=== PATIENT | female | born 1955 | race Two or more races ===

== ENCOUNTER 2016-07-07 22:50 | Emergency (ER) | payer OTHER ==
[~2016-07-07] VITALS: Ht 167.6 cm; Wt 136.1 kg
[~2016-07-07 22:50] MED LIST: ELIQUIS5 MG PO; FLUTICASONE PRO16 G1 NASAL; FUROSEMIDE40 MG ORAL; KLOR-CON 1010 MEQ ORAL; LORATADINE10 M2 PO; METOPROLOL SUCC25 MG ORAL; POTASSIUM CHLO10 ME3 ORAL; PRAVASTATIN SOD20 M1 ORAL; SERTRALINE HCL100 MG PO; TRAZODONE HCL50 MG ORAL; VENTOLIN HFA18 GM INH
[2016-07-07 23:19] VITALS: BP 124/57
--- NOTE | 2016-07-07 23:24 | Emergency Room Report ---
History of Present Illness General Chief Complaint: Vomiting Source: Patient Present Illness HPI This is a 60-year-old female with a history of wide-complex tachycardia. She is pending authorization for ablation therapy. She presents with cough and congestion with shortness of breath for the last 5 days. Granddaughter said. No fever or chills and no nausea no vomiting. Worse with inspiration. Now with chest tightness. One episode of tachycardia to 3 days ago. Allergies: Coded Allergies: No Known Allergies (Unverified , 03/18/16) Patient History Past Medical History: see triage record, old chart reviewed Past Surgical History: other Pertinent Family History: none Social History: Denies: smoking Now: No Immunizations: other Reviewed Nursing Documentation: PMH: Agreed, PSxH: Agreed Nursing Documentation-PMH Hx Cardiac Problems: Yes Hx Hypertension: Yes Hx COPD: Yes Hx Gastrointestinal Problems: No Hx Neurological Problems: No Review of Systems Eye: Denies: blurred vision, eye pain ENT: Denies: ear pain, nose congestion, throat swelling Respiratory: Reports: cough, shortness of breath Cardiovascular: Denies: chest pain, palpitations Gastrointestinal: Denies: abdominal pain, diarrhea, nausea, vomiting Musculoskeletal: Denies: back pain, joint pain Skin: Denies: rash Neurological: Denies: headache, numbness Endocrine: Denies: increased thirst, increased urine Hematologic/Lymphatic: Denies: easy bruising All Other Systems: negative except mentioned in HPI Physical Exam Vital Signs Date Time Temp Pulse Resp B/P Pulse Ox O2 Delivery O2 Flow Rate FiO2 07/07/16 22:57 98.1 76 19 108/76 95 Room Air vitals normal Sp02 EP Interpretation: reviewed, normal General Appearance: well appearing, no apparent distress, alert, obese Head: normocephalic, atraumatic Eyes: bilateral eye EOMI, bilateral eye PERRL ENT: hearing grossly normal, normal pharynx Neck: full range of motion, supple, no meningismus Respiratory: chest non-tender, lungs clear, normal breath sounds, other - Coughing with inspiration Cardiovascular #1: regular rate, rhythm, no murmur Gastrointestinal: normal bowel sounds, non tender, no mass, no organomegaly, no bruit, non-distended Musculoskeletal: back normal, gait/station normal, normal range of motion Neurologic: alert, oriented x3 Psychiatric: mood/affect normal Skin: warm/dry Medical Decision Making Diagnostic Impression: Primary Impression: Viral upper respiratory tract infection with cough ER Course Patient presents with a cough secondary to a viral illness. No evidence of ACS , PE, dissection, arrhythmia, CHF to name a few Lab Results Impression labs unremarkable EKG Diagnostic Results Rate: normal Rhythm: NSR ST Segments: no acute changes Rhythm Strip Diag. Results EP Interpretation: yes Rate: 72 Rhythm: NSR, no PVC's, no ectopy Chest X-Ray Diagnostic Results EP Interpretation: Yes Findings: no consolidation, no effusion, no pneumothorax, no acute cardiopulmonary disease Number of Views: 1 Last Vital Signs Date Time Temp Pulse Resp B/P Pulse Ox O2 Delivery O2 Flow Rate FiO2 07/07/16 23:19 98.1 81 19 124/57 97 Room Air Status: improved Disposition: HOME, SELF-CARE Condition: Stable Scripts Prednisone* (PREDNISONE*) 20 Mg Tablet 60 MG ORAL DAILY, #15 TAB Prov: DORA MAJOR M.D. 07/08/16 Promethazine HCl/Codeine (Prometh-Codein 6.25-10 mg/5 ml) 5 Ml Syrup 10 ML PO QID, #240 ML Prov: DORA MAJOR M.D. 07/08/16 Referrals: [facility],REFERRING (PCP) Additional Instructions: Followup with your DrBrenna in 2-3 days. Return if symptom worsen. DORA MAJOR M.D. Jul 07, 2016 23:24
[2016-07-07] MEDS ORDERED: Ipratropium 0.02% Inh Soln 2.5ml UD HHN ONE (23:30)
[2016-07-07] MEDS ORDERED: Solu-MEDROL 125mg Inj IVP ONE (23:30)
[2016-07-07 23:49] LABS: EOSINOPHILS % (AUTO) 5.1 % (0.0-3.0); LYMPHOCYTES % (AUTO) 21.4 % (20.0-45.0); MEAN CORPUSCULAR HEMOGLOBIN 32.7 PG (27.0-31.0); MEAN CORPUSCULAR HGB CONC 35.4 G/DL (32.0-36.0); MEAN CORPUSCULAR VOLUME 92 FL (80-99); MEAN PLATELET VOLUME 7.4 FL (6.5-10.1); MONOCYTES % (AUTO) 8.3 % (1.0-10.0); NEUTROPHILS % (AUTO) 64.2 % (45.0-75.0); PLATELET COUNT 217 K/UL (150-450); WHITE BLOOD COUNT 9.3 K/UL (4.8-10.8)
[2016-07-08 00:05] LABS: ALANINE AMINOTRANSFERASE 19 U/L (3-33); ALBUMIN/GLOBULIN RATIO 1.1 (1.0-2.7); ANION GAP 14 (5-15); ASPARTATE AMINO TRANSFERASE 24 U/L (5-40); CALCIUM 9.4 mg/dL (8.6-10.2); CARBON DIOXIDE 27 mEQ/L (20-30); CHLORIDE 97 mEQ/L (98-107); CREATININE 0.8 mg/dL (0.5-0.9); GLOMERULAR FILTRATION RATE > 60 mL/min (>60); HEMOLYSIS 2; POTASSIUM 4.2 mEQ/L (3.4-4.9); SODIUM 138 mEQ/L (135-145); TOTAL PROTEIN 7.8 g/dL (6.6-8.7)
[2016-07-08 00:10] LABS: TROPONIN I < 0.30 ng/mL (<=0.30)
[2016-07-08 00:27] VITALS: BP 105/60
[2016-07-08] MEDS ORDERED: PREDNISONE20 MG ORAL (00:31)
[2016-07-08] MEDS ORDERED: PROMETH-CODEIN 65 ML PO (00:31)
[2016-07-08 00:45] VITALS: BP 105/60
--- NOTE | 2016-07-08 13:44 | Diagnostic Imaging Report ---
Indication: SOB Technique: One view of the chest Comparison: 03/18/2016 Findings: Body habitus limits evaluation lungs and pleural spaces are clear. The heart is normal in size. No significant change Impression: No acute process
--- NOTE | 2016-07-08 14:16 | Cardiology Report ---
APPROVED REPORT EKG Measurement Heart [id number] FL 132P [id number] Sinus rhythm with frequent premature ventricular complexes in a pattern of bigeminy Possible Lateral infarct, age undetermined Abnormal ECG
== END 2016-07-08 00:50 | disposition home or self-care (01) ==
LOC: EMR 23:22
DX: J06.9 Acute upper respiratory infection, unspecified (principal); I10 Essential (primary) hypertension; J44.9 Chronic obstructive pulmonary disease, unspecified
CPT/HCPCS: 36415; 71010; 80053; 84484; 85025; 93005; 94640; 94664; 96361; 96374; 99284; J2930; J7040

== ENCOUNTER 2016-08-01 04:25 | Inpatient (IN) | payer OTHER ==
[2016-08-01] VITALS (9 sets, daily range): BP systolic 87–106; BP diastolic 51–85
[~2016-08-01] VITALS: Ht 167.6 cm; Wt 144.7 kg
[~2016-08-01 04:25] MED LIST changes: +Diltiazem 50mg/10ml Inj ONE; +PREDNISONE20 MG ORAL; +PROMETH-CODEIN 65 ML PO
[2016-08-01] MEDS ORDERED: Diltiazem 25mg/5ml IV ONE (04:30)
--- NOTE | 2016-08-01 04:45 | Emergency Room Report ---
History of Present Illness General Chief Complaint: Chest Pain Source: Patient, Medical Record Present Illness HPI This is a 60-year-old female with a history hypertension, asthma, afib and arrhythmia. She had a wide-complex arrhythmia that was unsuccessful with ablation at [facility]. This is the third time she present with the same her symptoms. I saw her once before. She was getting up to use the restroom and felt palpitation and lightheaded. Unable to sleep. More severe this time with increasing pain and dizziness. EMS gave her 6 mg of adenosine, then 12 mg, then another 12 mg. He was unsuccessful. Heart rate was in the 190-200. She also received aspirin and nitroglycerin. Rated the pain as 7/10. No fever or chills. No diaphoresis. Onset for 2 hours now. She is on Eliquis for her afib. Allergies: Coded Allergies: No Known Allergies (Unverified , 03/18/16) Patient History Past Medical History: see triage record, old chart reviewed, HTN, AFib, arrhyth Past Surgical History: other Pertinent Family History: none Social History: Denies: smoking Now: No Immunizations: other Reviewed Nursing Documentation: PMH: Agreed, PSxH: Agreed Nursing Documentation-PMH Hx Cardiac Problems: Yes Hx Hypertension: Yes Hx COPD: Yes Hx Gastrointestinal Problems: No Hx Neurological Problems: No Review of Systems Eye: Denies: blurred vision, eye pain ENT: Denies: ear pain, nose congestion, throat swelling Respiratory: Denies: cough, shortness of breath Cardiovascular: Reports: chest pain, palpitations Gastrointestinal: Denies: abdominal pain, diarrhea, nausea, vomiting Musculoskeletal: Denies: back pain, joint pain Skin: Denies: rash Neurological: Reports: dizziness, Denies: headache, numbness Endocrine: Denies: increased thirst, increased urine Hematologic/Lymphatic: Denies: easy bruising All Other Systems: negative except mentioned in HPI Physical Exam Vital Signs Date Time Temp Pulse Resp B/P Pulse Ox O2 Delivery O2 Flow Rate FiO2 08/01/16 04:22 97.2 195 42 106/82 98 Room Air vitals with tachycardia Sp02 EP Interpretation: reviewed, normal General Appearance: well appearing, alert, mild distress, obese Head: normocephalic, atraumatic Eyes: bilateral eye EOMI, bilateral eye PERRL ENT: hearing grossly normal, normal pharynx Neck: full range of motion, supple, no meningismus Respiratory: chest non-tender, lungs clear, normal breath sounds Cardiovascular #1: regular rate, rhythm, no murmur, tachycardia Gastrointestinal: normal bowel sounds, non tender, no mass, no organomegaly, no bruit, non-distended Musculoskeletal: back normal, normal range of motion Neurologic: alert, oriented x3 Psychiatric: mood/affect normal Skin: warm/dry Procedures Critical Care Time Critical Care Time Critical care is mandated in this patient who presented with ventricular tachycardia. Patient require my urgent intervention to attenuate the risks of metabolic collapse which may lead to cardiovascular collapse and . Critical care time is 35 minutes excluding any reportable procedure. Critical care time included evaluation, multiple reevaluation, looking at old charts, interpreting laboratory and diagnostic data, discussing case with patient and family and consultants, and charting. Medical Decision Making Diagnostic Impression: Primary Impression: Ventricular tachyarrhythmia Additional Impressions: Chest pain Qualified Codes: R07.9 - Chest pain, unspecified Morbid obesity with BMI of 60.0-69.9, adult ER Course Patient presents with a wide-complex ventricular tachycardia. This is probably a rapid A. fib. Rated controlled nicely after a small bolus of Cardizem. Blood pressure better. No evidence of infection. Troponin negative. We'll get for further workup. She may benefit from AICD. She is currently on anticoagulation with Eliquis. EKG Diagnostic Results Rate: tachycardiac Rhythm: other - wide complex VTach ST Segments: no acute changes Other Impression EKG #2: interpreted by me. NSR, rate 102. NSST changes. No ST elevation. Rhythm Strip Diag. Results EP Interpretation: yes Rate: 98 Rhythm: NSR, no PVC's, no ectopy Chest X-Ray Diagnostic Results EP Interpretation: Yes Findings: no consolidation, no effusion, no pneumothorax, no acute cardiopulmonary disease, other - CM Number of Views: 1 Last Vital Signs Date Time Temp Pulse Resp B/P Pulse Ox O2 Delivery O2 Flow Rate FiO2 08/01/16 04:33 198 102/82 08/01/16 04:22 97.2 42 98 Room Air Status: improved Disposition: ADMITTED INPATIENT Condition: Serious DORA MAJOR M.D. Aug 01, 2016 04:45
[2016-08-01 04:52] LABS: BASOPHILS % (AUTO) 0.5 % (0.0-2.0); EOSINOPHILS % (AUTO) 2.3 % (0.0-3.0); LYMPHOCYTES % (AUTO) 22.3 % (20.0-45.0); MEAN CORPUSCULAR HEMOGLOBIN 30.6 PG (27.0-31.0); MEAN CORPUSCULAR HGB CONC 33.1 G/DL (32.0-36.0); MEAN CORPUSCULAR VOLUME 92 FL (80-99); MEAN PLATELET VOLUME 7.2 FL (6.5-10.1); MONOCYTES % (AUTO) 4.8 % (1.0-10.0); NEUTROPHILS % (AUTO) 70.2 % (45.0-75.0); PLATELET COUNT 311 K/UL (150-450); RED BLOOD COUNT 5.36 M/UL (4.20-5.40); WHITE BLOOD COUNT 16.2 K/UL (4.8-10.8)
[2016-08-01 05:08] LABS: INR 1.1 (0.9-1.1); PROTHROMBIN TIME 10.9 SEC (9.30-11.50)
[2016-08-01 05:10] LABS: ALANINE AMINOTRANSFERASE 21 U/L (3-33); ALBUMIN/GLOBULIN RATIO 1.1 (1.0-2.7); ANION GAP 17 (5-15); ASPARTATE AMINO TRANSFERASE 20 U/L (5-40); CALCIUM 9.1 mg/dL (8.6-10.2); CARBON DIOXIDE 25 mEQ/L (20-30); CHLORIDE 99 mEQ/L (98-107); CREATININE 0.8 mg/dL (0.5-0.9); GLOMERULAR FILTRATION RATE > 60 mL/min (>60); HEMOLYSIS 15; POTASSIUM 3.9 mEQ/L (3.4-4.9); SODIUM 141 mEQ/L (135-145); TOTAL PROTEIN 7.2 g/dL (6.6-8.7)
[2016-08-01 05:15] LABS: TROPONIN I < 0.30 ng/mL (<=0.30)
[2016-08-01 05:25] LABS: CKMB < 1.5 ng/mL (< 3.8)
[2016-08-01 05:43] LABS: APPEARANCE,URINE CLEAR; KETONES,URINE NEGATIVE (NEGATIVE); LEUKOCYTE ESTERASE ,URINE NEGATIVE (NEGATIVE); NITRITE,URINE NEGATIVE (NEGATIVE); PH,URINE 5 (4.5-8.0); PROTEIN,URINE NEGATIVE (NEGATIVE); UROBILINOGEN,URINE NORMAL MG/DL (0.0-1.0)
[2016-08-01] MEDS ORDERED: ACETAMINOPHEN-1 EAC1 ORAL (05:54)
[2016-08-01] MEDS ORDERED: Nitroglycerin Subl 0.4mg tab (Bottle Of 25) SL PRN (07:30)
[2016-08-01] MEDS ORDERED: Ketorolac 30mg Inj IV PRN (07:30)
[2016-08-01] MEDS ORDERED: Metoprolol 5mg/5ml Inj IVP PRN (07:30)
[2016-08-01] MEDS ORDERED: Enalaprilat 2.5mg/2ml Inj IV PRN (07:30)
[2016-08-01] MEDS ORDERED: Diltiazem 25mg/5ml IV PRN (07:30)
[2016-08-01] MEDS ORDERED: Morphine Sulfate 2mg/ml Inj IVP PRN (07:30)
[2016-08-01] MEDS ORDERED: DuoNeb 0.5-3(2.5)mg/3ml neb HHN PRN (07:30)
[2016-08-01] MEDS ORDERED: Miralax 17gm pkt ORAL PRN (07:30)
[2016-08-01] MEDS ORDERED: Digoxin 0.5mg/2ml Inj IVP ONE (08:00)
[2016-08-01] MEDS ORDERED: Eliquis 2.5mg tablet ORAL SCH (09:00)
--- NOTE | 2016-08-01 10:13 | Cardiology Progress Note ---
Assessment/Plan Assessment/Plan 1. Wide complex tachycardia converted with the use of IV diltiazem. 2. Reported history of same with negative electrophysiology study forinduction of right ventricular outflow tract and ventricular tachycardia. 3. History of of atrial fibrillation noted on Zio patch 25% afib burden 4. Obesity. 5. Possible obstructive sleep apnea. 6. Hypertension bp on the low side nwo ivf bolus repeat cardiac enzyme ekg and echo needs to fuw by her ep they are waiting for authorization for eps per pt metoprolol bid prn cardizem 30 mg one time use for recurrence as out pt (need 5 tabs to have a t home to use only if persistent tachy ) keep on anticoagualtion [id number]. Objective Last 24 Hour Vital Signs Date Time Temp Pulse Resp B/P Pulse Ox O2 Delivery O2 Flow Rate FiO2 08/01/16 09:01 76 92/58 08/01/16 08:14 74 08/01/16 08:08 74 08/01/16 08:00 97.2 75 18 87/55 96 Room Air 08/01/16 06:30 97.0 76 18 105/65 99 Room Air 08/01/16 06:15 98.0 74 15 105/80 100 Room Air 08/01/16 06:15 74 15 105/80 100 Room Air 08/01/16 05:30 74 14 98/83 100 Room Air 08/01/16 04:50 88 18 101/85 100 Room Air 08/01/16 04:36 198 25 106/82 99 Room Air 08/01/16 04:36 198 25 Room Air 08/01/16 04:33 198 102/82 08/01/16 04:22 97.2 195 42 106/82 98 Room Air Intake and Output 07/31/16 08/01/16 19:00 07:00 Intake Total 500 ml Output Total 1300 ml Balance -800 ml IV Total 500 ml Output Urine Total 1300 ml Laboratory Tests Test 08/01/16 04:28 08/01/16 05:06 08/01/16 09:30 White Blood Count 16.2 K/UL (4.8-10.8) H Red Blood Count 5.36 M/UL (4.20-5.40) Hemoglobin 16.4 G/DL (12.0-16.0) H Hematocrit 49.5 % (37.0-47.0) H Mean Corpuscular Volume 92 FL (80-99) Mean Corpuscular Hemoglobin 30.6 PG (27.0-31.0) Mean Corpuscular Hemoglobin Concent 33.1 G/DL (32.0-36.0) Red Cell Distribution Width 12.0 % (11.6-14.8) Platelet Count 311 K/UL (150-450) Mean Platelet Volume 7.2 FL (6.5-10.1) Neutrophils (%) (Auto) 70.2 % (45.0-75.0) Lymphocytes (%) (Auto) 22.3 % (20.0-45.0) Monocytes (%) (Auto) 4.8 % (1.0-10.0) Eosinophils (%) (Auto) 2.3 % (0.0-3.0) Basophils (%) (Auto) 0.5 % (0.0-2.0) Prothrombin Time 10.9 SEC (9.30-11.50) Prothromb Time International Ratio 1.1 (0.9-1.1) Activated Partial Thromboplast Time 27 SEC (23-33) Sodium Level 141 mEQ/L (135-145) Potassium Level 3.9 mEQ/L (3.4-4.9) Chloride Level 99 mEQ/L (98-107) Carbon Dioxide Level 25 mEQ/L (20-30) Anion Gap 17 (5-15) H Blood Urea Nitrogen 13 mg/dL (7-23) Creatinine 0.8 mg/dL (0.5-0.9) Estimat Glomerular Filtration Rate > 60 mL/min (>60) Glucose Level 153 mg/dL (74-106) H Calcium Level 9.1 mg/dL (8.6-10.2) Total Bilirubin 0.2 mg/dL (0.0-1.2) Aspartate Amino Transf (AST/SGOT) 20 U/L (5-40) Alanine Aminotransferase (ALT/SGPT) 21 U/L (3-33) Alkaline Phosphatase 107 U/L (35-104) H Total Creatine Kinase 49 U/L (26-140) Creatine Kinase MB < 1.5 ng/mL (< 3.8) Creatine Kinase MB Relative Index 3.0 Troponin I < 0.30 ng/mL (<=0.30) Pending Pro-B-Type Natriuretic Peptide 795 pg/mL (0-125) H Total Protein 7.2 g/dL (6.6-8.7) Albumin 3.8 g/dL (3.5-5.2) Globulin 3.4 g/dL Albumin/Globulin Ratio 1.1 (1.0-2.7) Urine Color Pale yellow Urine Appearance Clear Urine pH 5 (4.5-8.0) Urine Specific [place] 1.010 (1.005-1.035) Urine Protein Negative (NEGATIVE) Urine Glucose (UA) Negative (NEGATIVE) Urine Ketones Negative (NEGATIVE) Urine Occult Blood Negative (NEGATIVE) Urine Nitrite Negative (NEGATIVE) Urine Bilirubin Negative (NEGATIVE) Urine Urobilinogen Normal MG/DL (0.0-1.0) Urine Leukocyte Esterase Negative (NEGATIVE) IRVIN HEARD Aug 01, 2016 10:13
[2016-08-01] MEDS: Eliquis 2.5mg tablet ORAL SCH ×2 (10:25→21:45)
[2016-08-01] MEDS: Metoprolol 50mg tab ORAL SCH ×2 (10:27→21:00)
[2016-08-01 10:36] LABS: TROPONIN I < 0.30 ng/mL (<=0.30)
--- NOTE | 2016-08-01 11:24 | History and Physical ---
History of Present Illness General Date patient seen: Aug 01, 2016 Reason for Hospitalization: Chest Pain Present Illness HPI 60-year-old female with a history hypertension, asthma, afib and arrhythmia. She had a wide-complex arrhythmia that was unsuccessful with ablation at [facility]. This is the third time she present with the same her symptoms. She was getting up and felt palpitation and lightheaded. EMS gave her 6 mg of adenosine, then 12 mg, then another 12 mg. It was unsuccessful. Heart rate was in the 190-200. She received digoxin, cardizem , lopressor in ER and converted to sinus. Allergies: Coded Allergies: No Known Allergies (Unverified , 03/18/16) Medication History Scheduled Furosemide* (Lasix*), 40 MG ORAL DAILY, (Reported) Metoprolol Succinate* (Metoprolol Succinate*), 25 MG ORAL DAILY, (Reported) Potassium Chloride (Klor-Con 10), 10 MEQ ORAL DAILY, (Reported) Sertraline Hcl* (Zoloft*), 100 MG PO DAILY, (Reported) Scheduled PRN Acetaminophen With Codeine (T#3) (Tylenol #3 Tab*), 1 TAB ORAL Q4H PRN for For Pain, (Reported) Miscellaneous Medications Apixaban (Eliquis), 5 MG PO, (Reported) Discontinued Medications Albuterol Sulfate (Ventolin Hfa), 2 PUFFS INH EVERY 6 HOURS, (Reported) Discontinued Reason: Therapy completed Fluticasone Propionate* (Fluticasone Propionate*), 1 SPRAY NASAL DAILY, ( Reported) Discontinued Reason: Therapy completed Loratadine (Loratadine), 10 MG PO, (Reported) Discontinued Reason: Therapy completed Potassium Chloride (Potassium Chloride), 10 MEQ ORAL DAILY, (Reported) Discontinued Reason: Therapy completed Pravastatin Sod* (Pravastatin Sod*), 40 MG ORAL BEDTIME, (Reported) Discontinued Reason: Therapy completed Prednisone* (Prednisone*), 60 MG ORAL DAILY Discontinued Reason: Therapy completed Promethazine HCl/Codeine (Prometh-Codein 6.25-10 mg/5 ml), 10 ML PO QID Discontinued Reason: Therapy completed Trazodone Hcl* (Desyrel*), 50 MG ORAL BEDTIME, (Reported) Discontinued Reason: Therapy completed Patient History Healthcare decision maker Resuscitation status Full Code Advanced Directive on File Past Medical/Surgical History Past Medical/Surgical History: (1) Ventricular tachyarrhythmia (2) Morbid obesity with BMI of 60.0-69.9, adult Review of Systems All Other Systems: negative except mentioned in HPI Physical Exam General Appearance: WD/WN, no apparent distress Lines, tubes and drains: peripheral, central line HEENT: normocephalic, atraumatic Neck: non-tender, supple Respiratory/Chest: chest wall non-tender Last 24 Hour Vital Signs Date Time Temp Pulse Resp B/P Pulse Ox O2 Delivery O2 Flow Rate FiO2 08/01/16 09:01 76 92/58 08/01/16 08:14 74 08/01/16 08:08 74 08/01/16 08:00 97.2 75 18 87/55 96 Room Air 08/01/16 06:30 97.0 76 18 105/65 99 Room Air 08/01/16 06:15 98.0 74 15 105/80 100 Room Air 08/01/16 06:15 74 15 105/80 100 Room Air 08/01/16 05:30 74 14 98/83 100 Room Air 08/01/16 04:50 88 18 101/85 100 Room Air 08/01/16 04:36 198 25 106/82 99 Room Air 08/01/16 04:36 198 25 Room Air 08/01/16 04:33 198 102/82 08/01/16 04:22 97.2 195 42 106/82 98 Room Air Intake and Output 07/31/16 08/01/16 19:00 07:00 Intake Total 500 ml Output Total 1300 ml Balance -800 ml IV Total 500 ml Output Urine Total 1300 ml Laboratory Tests Test 08/01/16 04:28 08/01/16 05:06 08/01/16 09:30 White Blood Count 16.2 K/UL (4.8-10.8) H Red Blood Count 5.36 M/UL (4.20-5.40) Hemoglobin 16.4 G/DL (12.0-16.0) H Hematocrit 49.5 % (37.0-47.0) H Mean Corpuscular Volume 92 FL (80-99) Mean Corpuscular Hemoglobin 30.6 PG (27.0-31.0) Mean Corpuscular Hemoglobin Concent 33.1 G/DL (32.0-36.0) Red Cell Distribution Width 12.0 % (11.6-14.8) Platelet Count 311 K/UL (150-450) Mean Platelet Volume 7.2 FL (6.5-10.1) Neutrophils (%) (Auto) 70.2 % (45.0-75.0) Lymphocytes (%) (Auto) 22.3 % (20.0-45.0) Monocytes (%) (Auto) 4.8 % (1.0-10.0) Eosinophils (%) (Auto) 2.3 % (0.0-3.0) Basophils (%) (Auto) 0.5 % (0.0-2.0) Prothrombin Time 10.9 SEC (9.30-11.50) Prothromb Time International Ratio 1.1 (0.9-1.1) Activated Partial Thromboplast Time 27 SEC (23-33) Sodium Level 141 mEQ/L (135-145) Potassium Level 3.9 mEQ/L (3.4-4.9) Chloride Level 99 mEQ/L (98-107) Carbon Dioxide Level 25 mEQ/L (20-30) Anion Gap 17 (5-15) H Blood Urea Nitrogen 13 mg/dL (7-23) Creatinine 0.8 mg/dL (0.5-0.9) Estimat Glomerular Filtration Rate > 60 mL/min (>60) Glucose Level 153 mg/dL (74-106) H Calcium Level 9.1 mg/dL (8.6-10.2) Total Bilirubin 0.2 mg/dL (0.0-1.2) Aspartate Amino Transf (AST/SGOT) 20 U/L (5-40) Alanine Aminotransferase (ALT/SGPT) 21 U/L (3-33) Alkaline Phosphatase 107 U/L (35-104) H Total Creatine Kinase 49 U/L (26-140) Creatine Kinase MB < 1.5 ng/mL (< 3.8) Creatine Kinase MB Relative Index 3.0 Troponin I < 0.30 ng/mL (<=0.30) < 0.30 ng/mL (<=0.30) Pro-B-Type Natriuretic Peptide 795 pg/mL (0-125) H Total Protein 7.2 g/dL (6.6-8.7) Albumin 3.8 g/dL (3.5-5.2) Globulin 3.4 g/dL Albumin/Globulin Ratio 1.1 (1.0-2.7) Urine Color Pale yellow Urine Appearance Clear Urine pH 5 (4.5-8.0) Urine Specific [place] 1.010 (1.005-1.035) Urine Protein Negative (NEGATIVE) Urine Glucose (UA) Negative (NEGATIVE) Urine Ketones Negative (NEGATIVE) Urine Occult Blood Negative (NEGATIVE) Urine Nitrite Negative (NEGATIVE) Urine Bilirubin Negative (NEGATIVE) Urine Urobilinogen Normal MG/DL (0.0-1.0) Urine Leukocyte Esterase Negative (NEGATIVE) Height (Feet): 5 Height (Inches): 6.00 Weight (Pounds): 319 Medications Current Medications Medications (Trade) Dose Ordered Sig/Gisella Route PRN Reason Start Time Stop Time Status Last Admin Dose Admin Acetaminophen (Tylenol) 650 mg Q4H PRN ORAL FEVER 08/01/16 07:30 08/31/16 07:29 Albuterol/ Ipratropium (DuoNeb 0.5-3(2.5)mg/3ml) 3 ml EVERY 4 HOURS PRN HHN Shortness of Breath 08/01/16 07:30 08/06/16 07:29 Apixaban (Eliquis) 5 mg BID ORAL 08/01/16 11:00 08/31/16 10:59 Diltiazem HCl (Cardizem) 10 mg EVERY HOUR PRN IV heart rate more than 120, 08/01/16 07:30 08/31/16 07:29 Enalaprilat (Vasotec) 2.5 mg EVERY 6 HOURS PRN IV sbp more than 160 08/01/16 07:30 08/31/16 07:29 Ketorolac Tromethamine (Toradol 30mg) 30 mg Q6HR PRN IV moderate pain ( 4-6) 08/01/16 07:30 08/06/16 07:29 Metoprolol Tartrate 50 mg 50 mg Q12HR ORAL 08/01/16 11:00 08/31/16 10:59 Morphine Sulfate (Morphine Sulfate) 2 mg EVERY 4 HOURS PRN IVP severe Pain (Pain Scale 7-10) 08/01/16 07:30 08/08/16 07:29 Nitroglycerin (Ntg) 0.4 mg Q5M PRN SL Prn Chest Pain 08/01/16 07:30 08/31/16 07:29 Ondansetron HCl (Zofran) 4 mg Q6H PRN IVP Nausea & Vomiting 08/01/16 07:30 08/31/16 07:29 Pantoprazole (Protonix) 40 mg DAILY ORAL 08/01/16 09:00 08/31/16 08:59 08/01/16 09:02 Polyethylene Glycol (Miralax) 17 gm DAILYPRN PRN ORAL Constipation 08/01/16 07:30 08/31/16 07:29 Sodium Chloride (Sodium Chloride 1000ml bag) 1,000 ml @ 75 mls/hr [id number] IV 08/01/16 11:00 08/31/16 10:59 08/01/16 10:49 Temazepam (Restoril) 15 mg HSPRN PRN ORAL Insomnia 08/01/16 07:30 08/08/16 07:29 Assessment/Plan Problem List: (1) Ventricular tachyarrhythmia ICD Codes: I47.2 - Ventricular tachycardia; Z68.44 - Body mass index (BMI) 60.0 -69.9, adult SNOMED: 56913634, [id number] (2) Chest pain ICD Codes: R07.9 - Chest pain, unspecified SNOMED: 67325622, [id number] Qualifiers: Qualified Codes: R07.9 - Chest pain, unspecified (3) Morbid obesity with BMI of 60.0-69.9, adult ICD Codes: E66.01 - Morbid (severe) obesity due to excess calories; Z68.44 - Body mass index (BMI) 60.0-69.9, adult SNOMED: 845404724, [id number] Assessment/Plan converted now f/u by cardio check echo dc home when ok with cardio KELECHI WALLER Aug 01, 2016 11:24
--- NOTE | 2016-08-01 20:38 | Consultation ---
DATE OF CONSULTATION: 08/01/2016 CARDIOLOGY CONSULTATION REFERRING PHYSICIAN: Joce Ruiz M.D. REASON FOR REFERRAL: Wide-complex tachycardia. HISTORY OF PRESENT ILLNESS: This is an elderly female, who is known to me from prior evaluation and hospitalization. The patient has extensive records at [facility]. Because of her insurance reason, she is no longer able to go to that facility, but the records from my note were reviewed. The patient presents to the hospital because of episodes of palpitations, dizziness, and shortness of breath and chest pain that she developed when she got up in the middle of the night to go to the bathroom. This is similar to what she has had on prior occasions. She denies having missed any of her metoprolol, as we had discussed previously. Nevertheless, eventually she presented to the emergency room at [facility]. Paramedics administered several doses of adenosine without any benefit. Eventually, the patient was given a small dose of bolus of Cardizem by the emergency physician and rate immediately became controlled and the blood pressure was better and the patient was subsequently admitted to the hospital. She does not have any discomfort right now. She thinks her pain lasted for approximately an hour or two and all of her symptoms and everything lasted approximately an hour or two. She does not have any PND. She does not have any orthopnea but she uses two pillows. She does have palpitations and rarely feels dizzy when she sits up. She did feel dizzy during the episode of palpitations and she had chest pains during the episode of palpitations across from right to left and all the way to her shoulders and back area when she was having the palpitations. PAST MEDICAL HISTORY: Positive for history of wide-complex tachycardia with concern about possibility of a right ventricular outflow tract obstruction. VT was raised. The patient was evaluated by Electrophysiology and had EP study and was not able to produce PVCs or , developed atrial fibrillation with rapid ventricular pacing was terminated by amiodarone and performed direct current cardioversion. The patient was started on Toprol-XL 25 mg a day increased to 50 mg and she was subsequently discharged. She has a history of hypertension as well as paroxysmal episodes of atrial fibrillation as mentioned above. She has had a prior left heart catheterization with cardiac catheterization in [facility] 2011 and therefore she did not feel that an ischemic evaluation was necessary on prior evaluation, as she apparently had a patch that showed evidence of atrial fibrillation with 25% burden. The patient was started on anticoagulation at that time. ALLERGIES: She has no known drug allergies. SOCIAL HISTORY: She does not smoke at the present time and does not drink alcoholic beverages, very rarely if she does she states. She lives at home. REVIEW OF SYSTEMS: Gastrointestinal: Negative. Cardiovascular: Negative. Pulmonary: Unless she has had a cough, cold or something, otherwise negative x3. Constitutional: Negative. Neurologic: Negative. PHYSICAL EXAMINATION: GENERAL: Shows a morbidly obese middle-aged female, in no apparent distress. NECK: Supple. No jugular venous distention. LUNGS: Clear to auscultation and percussion. CARDIAC: S1 S2 normal. S3 is normal. Regular rate and rhythm. No heaves, thrills, gallops, or rubs are noted. ABDOMEN: Soft and obese. Positive bowel sounds. EXTREMITIES: There is no clubbing, cyanosis, or edema. NEUROLOGIC: She is awake, alert, responsive, and in no apparent respiratory distress. LABORATORY AND DIAGNOSTIC DATA: White count is 16.2, with hemoglobin 16.1 and platelet count of 211,000. Sodium 141, potassium 3.9, chloride 99, bicarbonate 25, BUN of 13, creatinine 0.8, and glucose of 153. Calcium is 9.1. Alkaline phosphatase is 105. She has had one set of cardiac enzymes that was drawn at 4 o'clock in the morning and that was negative and proBNP was only 795. Her albumin is 3.8. Coagulation, INR 1.1 and PTT 27. Urinalysis is fairly unremarkable. Her imaging includes a chest x-ray that was performed last month on 07/07/2016 and that was negative. Her last echocardiogram was in March 2016, ejection fraction 55% to 60%. No significant abnormalities are noted. Electrocardiogram showed wide-complex tachycardia persistent for sometime, but responsive to the Cardizem. EKG showed normal sinus rhythm, normal QRS and axis. No ST or T-wave abnormalities of any kind. ASSESSMENT AND PLAN: 1. Wide-complex tachycardia with history of the same, responsive to Cardizem on emergency room arrival. 2. History of paroxysmal episodes of atrial fibrillation. 3. Morbid obesity. 4. Possible post obstructive sleep apnea. 5. Systemic hypertension. Dr. Ruiz, this patient was seen in cardiac consultation. It is of note that the patient has prior evaluations approximately 25% atrial fibrillation burden. It is possible that these are induced from atrial fibrillation and apparent conduction. Right ventricular outflow tract VT is also a distinct possibility as it is responsive to the Cardizem despite the fact that the negative electrophysiology was obtained. Nevertheless, she needs to eventually be followed by electrophysiology, she has been assigned one, who is approximately one month ago is waiting for authorization to have the procedures performed. We will continue on metoprolol twice a day and I would also consider administering Cardizem if she is able to take it if her blood pressure does allow, although her blood pressure most recently has been in the 80s to 90s, and she will receive a bolus of one liter of normal saline. She will have repeat cardiac enzymes. She will have an echocardiogram for evaluation of LV systolic function, and if those are normal, then she would be administered. She should be considered for Cardizem as an outpatient only on occasion, as I mentioned in my last note if persistent symptoms and not lightheadedness to use to see if it responds to pain. Otherwise, she needs to go to the emergency room or she may opt to call the paramedics right away as soon as they develop so they can consider administering Cardizem. Further recommendations on this patient will be provided based on the results of her workup over the next few hours. Rolando Gordon M.D. DR: NETO JOB#: [id number] CC:
[2016-08-02] VITALS: BP 103/56
[2016-08-02 04:00] VITALS: BP 99/58
[2016-08-02 07:29] LABS: BASOPHILS % (AUTO) 0.7 % (0.0-2.0); EOSINOPHILS % (AUTO) 4.7 % (0.0-3.0); LYMPHOCYTES % (AUTO) 33.7 % (20.0-45.0); MEAN CORPUSCULAR HEMOGLOBIN 31.3 PG (27.0-31.0); MEAN CORPUSCULAR HGB CONC 33.6 G/DL (32.0-36.0); MEAN CORPUSCULAR VOLUME 93 FL (80-99); MEAN PLATELET VOLUME 7.6 FL (6.5-10.1); MONOCYTES % (AUTO) 7.2 % (1.0-10.0); NEUTROPHILS % (AUTO) 53.6 % (45.0-75.0); PLATELET COUNT 247 K/UL (150-450); RED BLOOD COUNT 4.24 M/UL (4.20-5.40)
[2016-08-02 07:30] LABS: TROPONIN I < 0.30 ng/mL (<=0.30)
[2016-08-02 07:39] LABS: CHOLESTEROL/HDL RATIO 3.8 (3.3-4.4); CRP QUANT 1.7 mg/dL (< 0.5)
[2016-08-02 07:40] LABS: THYROID STIMULATING HORMONE 0.402 uIU/mL (0.300-4.500)
[2016-08-02 07:41] LABS: INR 1.1 (0.9-1.1); PROTHROMBIN TIME 10.7 SEC (9.30-11.50)
[2016-08-02 07:48] VITALS: BP 112/66
[2016-08-02] MEDS: Metoprolol 50mg tab ORAL SCH (08:29)
[2016-08-02] MEDS: Eliquis 2.5mg tablet ORAL SCH (08:31)
[2016-08-02] MEDS ORDERED: Digoxin 0.5mg/2ml Inj IVP SCH (09:00)
[2016-08-02 11:30] VITALS: BP 106/65
--- NOTE | 2016-08-02 12:07 | Pulmonology Progress Note ---
Assessment/Plan Problems: (1) Ventricular tachyarrhythmia (2) Chest pain (3) Morbid obesity with BMI of 60.0-69.9, adult Assessment/Plan asymtomatic need EP study as outpatient Cardizem prn for vent tachycardia Subjective ROS Limited/Unobtainable: No Interval Events: doing better Allergies: Coded Allergies: No Known Allergies (Unverified , 03/18/16) Objective Last 24 Hour Vital Signs Date Time Temp Pulse Resp B/P Pulse Ox O2 Delivery O2 Flow Rate FiO2 08/02/16 11:30 96.4 69 18 106/65 96 Room Air 08/02/16 08:29 60 98/60 08/02/16 08:00 97 08/02/16 07:48 97.9 66 18 112/66 95 Room Air 08/02/16 07:12 77 18 Room Air 08/02/16 04:00 97.5 65 16 99/58 95 Room Air 08/02/16 04:00 65 08/02/16 00:00 67 08/02/16 00:00 97.2 70 16 103/56 97 Room Air 08/01/16 20:00 69 08/01/16 20:00 97.0 70 17 102/51 95 08/01/16 18:30 70 18 Room Air 08/01/16 16:00 97.7 67 17 98/61 95 Room Air 08/01/16 16:00 68 Intake and Output 08/01/16 08/02/16 19:00 07:00 Intake Total 1040 ml 1305 ml Balance 1040 ml 1305 ml Intake Oral 440 ml 480 ml IV Total 600 ml 825 ml # Voids 2 # Bowel Movements 1 General Appearance: WD/WN HEENT: normocephalic, atraumatic Respiratory/Chest: chest wall non-tender, lungs clear Cardiovascular: normal peripheral pulses, normal rate Abdomen: normal bowel sounds, soft, non tender Laboratory Tests 08/02/16 05:30: Prothrombin Time 10.7, Prothromb Time International Ratio 1.1, Activated Partial Thromboplast Time 27, Troponin I < 0.30, C-Reactive Protein, Quantitative 1.7H, Triglycerides Level 148, Cholesterol Level 134, LDL Cholesterol 69, HDL Cholesterol 35, Cholesterol/HDL Ratio 3.8, Thyroid Stimulating Hormone (TSH) 0.402 08/02/16 05:50: White Blood Count 11.0H, Red Blood Count 4.24, Hemoglobin 13.3, Hematocrit 39.5 , Mean Corpuscular Volume 93, Mean Corpuscular Hemoglobin 31.3H, Mean Corpuscular Hemoglobin Concent 33.6, Red Cell Distribution Width 12.0, Platelet Count 247, Mean Platelet Volume 7.6, Neutrophils (%) (Auto) 53.6, Lymphocytes (% ) (Auto) 33.7, Monocytes (%) (Auto) 7.2, Eosinophils (%) (Auto) 4.7H, Basophils (%) (Auto) 0.7 Current Medications Medications (Trade) Dose Ordered Sig/Gisella Route PRN Reason Start Time Stop Time Status Last Admin Dose Admin Acetaminophen (Tylenol) 650 mg Q4H PRN ORAL FEVER 08/01/16 07:30 08/31/16 07:29 Albuterol/ Ipratropium (DuoNeb 0.5-3(2.5)mg/3ml) 3 ml EVERY 4 HOURS PRN HHN Shortness of Breath 08/01/16 07:30 08/06/16 07:29 Apixaban (Eliquis) 5 mg BID ORAL 08/01/16 11:00 08/31/16 10:59 08/02/16 08:31 Diltiazem HCl (Cardizem) 10 mg EVERY HOUR PRN IV heart rate more than 120, 08/01/16 07:30 08/31/16 07:29 Enalaprilat (Vasotec) 2.5 mg EVERY 6 HOURS PRN IV sbp more than 160 08/01/16 07:30 08/31/16 07:29 Ketorolac Tromethamine (Toradol 30mg) 30 mg Q6HR PRN IV moderate pain ( 4-6) 08/01/16 07:30 08/06/16 07:29 Metoprolol Tartrate 50 mg 50 mg Q12HR ORAL 08/01/16 11:00 08/31/16 10:59 Morphine Sulfate (Morphine Sulfate) 2 mg EVERY 4 HOURS PRN IVP severe Pain (Pain Scale 7-10) 08/01/16 07:30 08/08/16 07:29 Nitroglycerin (Ntg) 0.4 mg Q5M PRN SL Prn Chest Pain 08/01/16 07:30 08/31/16 07:29 Ondansetron HCl (Zofran) 4 mg Q6H PRN IVP Nausea & Vomiting 08/01/16 07:30 08/31/16 07:29 Pantoprazole (Protonix) 40 mg DAILY ORAL 08/01/16 09:00 08/31/16 08:59 08/02/16 08:28 Polyethylene Glycol (Miralax) 17 gm DAILYPRN PRN ORAL Constipation 08/01/16 07:30 08/31/16 07:29 Sodium Chloride (Sodium Chloride 1000ml bag) 1,000 ml @ 75 mls/hr [id number] IV 08/01/16 11:00 08/31/16 10:59 08/02/16 01:00 Temazepam (Restoril) 15 mg HSPRN PRN ORAL Insomnia 08/01/16 07:30 08/08/16 07:29 KELECHI WALLER Aug 02, 2016 12:07
[2016-08-02] MEDS ORDERED: CARDIZEM120 MG PO (12:13)
--- NOTE | 2016-08-03 08:38 | Diagnostic Imaging Report ---
Indication: Dyspnea Comparison: 07/07/16 A single view chest radiograph was obtained. Findings: No definite infiltrate or pulmonary vascular congestion identified. The heart is enlarged. The aorta is mildly enlarged consistent with atherosclerotic vascular disease. The bones are osteopenic. Impression: No acute disease
--- NOTE | 2016-08-04 12:50 | Discharge Instructions ---
Discharge Instructions For Congestive Heart Failure Reminder Report to your physician any weight gain of 5 pounds or more in one week. Francisco ([facility]),Nicole JALLOH Aug 04, 2016 12:50
--- NOTE | 2016-08-04 12:57 | Discharge Summary ---
Discharge Summary Hospital Course Date of Admission Aug 01, 2016 at 04:53 Date of Discharge Aug 02, 2016 at 13:45 Admitting Diagnosis Ventricular tachycardia JONATHON Guerra is a 60 year old female who was admitted on Aug 01, 2016 at 04: 53 for Ventricular Tachycardia Hospital Course dc summary # [id number] Discharge Medications New Medications: Diltiazem Hcl (Cardizem) 120 Mg Tablet 30 MG PO EVERY 8 HOURS, #30 TAB Continued Medications: Acetaminophen With Codeine (T#3) (Tylenol #3 Tab*) Y Tab 1 TAB ORAL Q4H PRN for For Pain, TAB Apixaban (Eliquis) 5 Mg Tablet 5 MG PO, TAB Furosemide* (Lasix*) 40 Mg Tablet 40 MG ORAL DAILY, TAB Sertraline Hcl* (Zoloft*) 100 Mg Tablet 100 MG PO DAILY, #2 TAB Discharge Condition Upon Discharge: stable Discharge Disposition Patient was discharged to home Discharge Diagnoses: Discharge Instructions Discharge Instructions Special Instructions I have been assigned to complete a D/C Summary on this account. I was not involved in the patient management Nicole Singh NP ([facility]) Aug 04, 2016 12:57
--- NOTE | 2016-08-05 00:48 | Discharge Summary 2 SIG ---
DATE OF ADMISSION: 08/01/2016 DATE OF DISCHARGE: 08/02/2016 REASON FOR ADMISSION: 60-year-old female came to emergency room due to chest pain that she developed when she got up in the middle of the night to go to the bathroom. She had episode of palpitation, dizziness, shortness of breath, and chest pain. This episode was similar to what she had on the prior occasion. She denied having missed any of metoprolol dose, that she is on. She stated that the pain lasted one to two hours and all of her symptoms lasted about the same time. She denied paroxysmal nocturnal dyspnea. She denied orthopnea. The patient had a history of wide complex tachyarrhythmia in the past with concern about the possibility of right ventricular outflow tract obstruction. The patient was evaluated by Electrophysiology and had electrophysiology study, but developed atrial fibrillation with rapid ventricular response, which was terminated by amiodarone and performed direct current cardioversion. The patient was started on beta-jax, Toprol-XL 25 mg a day, which was increased to 50 mg and the patient subsequently was discharged. At this time paramedics had given her several doses of adenosine without much benefit. In ED, the patient was given small dose of Cardizem bolus by the emergency physician. Heart rate immediately became more controlled and blood pressure improved . She denied discomfort while in the emergency room. After administration of Cardizem, when heart rate and blood pressure stabilized , the patient was transferred to telemetry for further management. ADMITTING DIAGNOSES: 1. Wide complex tachycardia with history of the same (responded to Cardizem). 2. Chest pain. 3. Paroxysmal atrial fibrillation. 4. Hypotension 5. History of asthma. 6. Possible obstructive sleep apnea. 7. Morbid obesity. 8. History of hypertension, HOSPITAL STAY: The patient admitted to telemetry floor. The patient was started on oral Cardizem, rate currently controlled. Anticoagulation continued. Supervisor Housecleaner followed. Troponin x3 was negative. EKG revealed no ischemic changes. The patient was ruled out for acute myocardial infarction. TSH was stable, within normal limits. Chest x-ray revealed cardiomegaly; no other acute cardiopulmonary issues. Supplemental oxygen and pulmonary toilet provided as needed. No evidence of asthma exacerbation. Stable respiratory status. The patient received one liter of the intravenous fluids. Beta-jax was stopped, continue calcium channel jax for now as per Cardiology recommendation, due to slightly low blood pressure, According to Cardiology, the patient will need to follow up with the Electrophysiology for further study as outpatient. Patient will also benefit from sleep study. Supervisor Housecleaner cleared for discharge. Sinus rhythm on tele, denied any cardiac complaints . Due to rapid and unexpected improvement in patient condition, the patient was discharged in one day. DISCHARGE DIAGNOSES: 1. Wide complex ventricular tachyarrhythmia- resolved 2. History of hypertension. 3. Paroxysmal atrial fibrillation. 4. Morbid obesity. 5. Possible obstructive sleep apnea. 6. History of asthma. DISCHARGE INSTRUCTIONS: Follow up with primary medical doctor. The patient will need a referral to follow up with the registered nurse midwife as per insurance. The patient would benefit from sleep study as outpatient. Joce Ruiz M.D. I have been assigned to dictate discharge summary on this account and I was not involved in the patient's management. Nicole DiazMetropolitan Hospital Centerrafael N.PBrenna DR: SALLY JOB#: [id number] CC: SALINA
--- NOTE | 2016-08-05 23:38 | Cardiology Report ---
APPROVED REPORT EKG Measurement Heart [id number] Normal sinus rhythm Prolonged QT Abnormal ECG
--- NOTE | 2016-08-05 23:42 | Cardiology Report ---
APPROVED REPORT EKG Measurement Heart [id number] Normal sinus rhythm Prolonged QT Abnormal ECG
--- NOTE | 2016-08-05 23:44 | Cardiology Report ---
APPROVED REPORT EKG Measurement Heart [id number] [place] 160P48 [id number] Sin[address] abnormality Abnormal ECG
--- NOTE | 2016-08-06 08:44 | Cardiology Report ---
APPROVED REPORT EXAM: Two-dimensional and M-mode echocardiogram with Doppler and color Doppler. INDICATION Left ventricular function M-Mode DIMENSIONS IVSd1.2 (0.7-1.1cm)Left Atrium (MM)4.1 (1.6-4.0cm) LVDd3.8 (3.5-5.6cm)Aortic Root2.6 (2.0-3.7cm) PWd0.5 (0.7-1.1cm)Aortic Cusp Exc.1.7 (1.5-2.0cm) LVDs2.2 (2.5-4.0cm) PWs1.0 cm Technically difficult study due to poor acoustic windows. Normal left ventricular chamber size, systolic function and wall motion. Left ventricular ejection fraction estimated to be 60-65 %. Moderate left ventricular hypertrophy. Anterior Echo-free space, may be due to pericardial fat or effusion. Right cardiac chamber sizes are within normal limits. Mild left atrial enlargement by 2D. Focal aortic valve sclerosis with adequate cusp excursion Thickened mitral valve leaflets with normal excursion. Mitral annulus and aortic root calcification. Pulmonic valve is well visualized. Normal tricuspid valve structure. IVC not obtainable. A color flow and spectral Doppler study was performed and revealed: No aortic regurgitation. Trace mitral regurgitation. Normal left ventricular diastolic dysfunction. Trace tricuspid regurgitation. Pulmonic regurgitation present.
== END 2016-08-02 13:45 | disposition home or self-care (01) | DRG 201 ==
LOC: EDBD 04:25 → EMR 04:40 → 2E 04:53 → EDBEDREQ 05:08 → 2E 12:15
DX: I47.2 Ventricular tachycardia (principal); I95.9 Hypotension, unspecified; Z68.44 Body mass index [BMI] 60.0-69.9, adult; R07.9 Chest pain, unspecified; I48.0 Paroxysmal atrial fibrillation; J45.909 Unspecified asthma, uncomplicated; G47.33 Obstructive sleep apnea (adult) (pediatric); E66.01 Morbid (severe) obesity due to excess calories; I10 Essential (primary) hypertension
CPT/HCPCS: 36415; 71010; 80053; 80061; 81003; 82550; 82553; 83880; 84443; 84484; 85025; 85610; 85730; 86140; 93005; 93306; 94664

== ENCOUNTER 2016-10-10 13:04 | Emergency (ER) | payer OTHER ==
[~2016-10-10] VITALS: Ht 167.6 cm; Wt 141.5 kg
[~2016-10-10 13:04] MED LIST changes: +ACETAMINOPHEN-1 EAC1 ORAL; +CARDIZEM120 MG PO; -Diltiazem 50mg/10ml Inj ONE
--- NOTE | 2016-10-10 13:46 | Emergency Room Report ---
History of Present Illness General Chief Complaint: Upper Respiratory Illness Source: Patient, Medical Record Present Illness HPI 60 YO female presents to the ED c/o persistent cough since , nasal congestion, increased phlegm which is gagging her, and SOB with wheezing. pt. denies CP reports back pain exacerbated with coughing episodes, denies fevers or chills, reports son had cough symptoms first. Pt denies swelling/edema of the lower extremities, denies frothy sputum. reports thick phlegm that feels stuck in her throat. Denies CP, Palpitations, LOC, AMS, dizziness, Changes in Vision, Sensation, paresthesias, or a sudden severe headache. Pt reports she was rx'd pseudafed by PCP last week but it was not covered at the pharmacy. Allergies: Coded Allergies: No Known Allergies (Unverified , 03/18/16) Patient History Past Medical History: see triage record Past Surgical History: none Pertinent Family History: none Social History: Reports: smoking Now: No Immunizations: UTD Reviewed Nursing Documentation: PMH: Agreed, PSxH: Agreed Nursing Documentation-PMH Hx Cardiac Problems: Yes Hx Hypertension: Yes Hx COPD: Yes Hx Cancer: No Hx Gastrointestinal Problems: No Hx Neurological Problems: No Review of Systems All Other Systems: negative except mentioned in HPI Physical Exam Vital Signs Date Time Temp Pulse Resp B/P Pulse Ox O2 Delivery O2 Flow Rate FiO2 10/10/16 13:38 98.1 70 16 133/77 99 Room Air Sp02 EP Interpretation: reviewed, normal General Appearance: no apparent distress, alert, GCS 15, non-toxic Head: normocephalic, atraumatic Eyes: right eye Fundiscopic, bilateral eye PERRL, bilateral eye normal inspection ENT: normal ENT inspection, hearing grossly normal, normal pharynx, no angioedema, normal voice, TMs + canals normal, uvula midline, moist mucus membranes, pharyngeal erythema Neck: full range of motion, supple/symm/no masses Respiratory: chest non-tender, rhonchi - scant ronchi /coarse lower lobes bilaterally, speaking full sentences Cardiovascular #1: regular rate, rhythm, no edema, normal capillary refill Gastrointestinal: normal bowel sounds, non tender, soft, no guarding, no rebound Rectal: deferred Genitourinary: normal inspection, no CVA tenderness Musculoskeletal: back normal, gait/station normal, normal range of motion, non- tender, no calf tenderness Neurologic: alert, oriented x3, responsive, motor strength/tone normal, sensory intact, speech normal Psychiatric: judgement/insight normal, memory normal, mood/affect normal, no suicidal/homicidal ideation Reflexes: 4+ bicep (R), 4+ bicep (L), 4+ tricep (R), 4+ tricep (L), 4+ knee (R) , 4+ knee (L) Skin: normal color, no rash, warm/dry, well hydrated Lymphatic: no adenopathy Medical Decision Making PA Attestation Dr. Hogan is my supervising Physician whom patient management has been discussed with. Diagnostic Impression: Primary Impression: Nasal congestion with rhinorrhea Additional Impression: Atypical pneumonia ER Course 60 YO female presents to the ED c/o persistent cough since , nasal congestion, increased phlegm which is gagging her, and SOB with wheezing. pt. denies CP reports back pain exacerbated with coughing episodes, denies fevers or chills, reports son had cough symptoms first. Pt denies swelling/edema of the lower extremities, denies frothy sputum. reports thick phlegm that feels stuck in her throat. Denies CP, Palpitations, LOC, AMS, dizziness, Changes in Vision, Sensation, paresthesias, or a sudden severe headache. pt has hx of smoking. Pt reports she was rx'd pseudafed by PCP last week but it was not covered at the pharmacy. Ddx considered but are not limited to URI, pneumonia, PE, strep pharyngitis, meningitis. Vital signs: Pt.is afebrile VS are WNL H&PE are most consistent with bronchitis will r/o pna with CXR. ORDERS: -CXR: questionable patchy infiltrate in the right Lower lobe, - poor inspiratory film- per preliminary read by Dr. Hogan ED INTERVENTIONS: None required at this time. DISCHARGE: At this time pt. is stable for d/c to home. Will provide printed patient care instructions, and any necessary prescriptions. Care plan and follow up instructions have been discussed with the patient prior to discharge. Last Vital Signs Date Time Temp Pulse Resp B/P Pulse Ox O2 Delivery O2 Flow Rate FiO2 10/10/16 13:38 98.1 70 16 133/77 99 Room Air Disposition: HOME, SELF-CARE Condition: Stable Scripts Pseudoephedrine Hcl* (NEXAFED*) 30 Mg Tablet 30 MG ORAL Q6H Y for congestion for 3 Days, #20 TAB Prov: Cherry Echevarria 10/10/16 Codeine/Promethazine Hcl* (PROMETHAZINE-CODEINE SYRUP*) 118 Ml Syrup 5 ML ORAL Q6H Y for For Cough, #118 ML 0 Refills Prov: Cherry Echevarria 10/10/16 Azithromycin* (ZITHROMAX*) 250 Mg Tablet 250 MG ORAL DAILY for 5 Days, #6 TAB Prov: Cherry Echevarria 10/10/16 Patient Instructions: Upper Respiratory Infection, Adult Additional Instructions: Take medications as directed. Follow up with PCP in 3-5 days Return sooner to ED if new symptoms occur, or current symptoms become worse. Do not drink alcohol, drive, or operate heavy machinery while taking cough syrup as this may cause drowsiness. - Please note that this Emergency Department Report was dictated using [employer] plant operator technology software, occasionally this can lead to erroneous entry secondary to interpretation by the dictation equipment. Cherry Echevarria October 10, 2016 13:46
[2016-10-10] MEDS ORDERED: PROMETHAZINE-C118 M1 ORAL (14:49)
[2016-10-10] MEDS ORDERED: NEXAFED30 MG ORAL (14:49)
[2016-10-10] MEDS ORDERED: ZITHROMAX250 MG ORAL (14:49)
[2016-10-10 15:14] VITALS: BP 101/57
--- NOTE | 2016-10-12 08:09 | Diagnostic Imaging Report ---
Indication: Chest Pain Comparison: 08/01/16 A single view chest radiograph was obtained. Findings: Vascular prominence demonstrated without definite CHF. Heart is enlarged. The bones are unremarkable. Impression: Hilar vascular prominence without definite CHF at this time
== END 2016-10-10 15:14 | disposition home or self-care (01) ==
LOC: EMR 15:10
DX: J18.9 Pneumonia, unspecified organism (principal); R09.81 Nasal congestion; J34.89 Other specified disorders of nose and nasal sinuses; I10 Essential (primary) hypertension; J44.9 Chronic obstructive pulmonary disease, unspecified; F17.210 Nicotine dependence, cigarettes, uncomplicated
CPT/HCPCS: 71010; 99284

== ENCOUNTER 2016-11-10 00:26 | Emergency (ER) | payer OTHER ==
[~2016-11-10] VITALS: Ht 167.6 cm; Wt 136.1 kg
[~2016-11-10 00:26] MED LIST changes: +NEXAFED30 MG ORAL; +PROMETHAZINE-C118 M1 ORAL; +ZITHROMAX250 MG ORAL
[2016-11-10] MEDS ORDERED: HYDROmorphone 1mg/ml Carpuject IVP ONE (00:45)
[2016-11-10 01:03] LABS: BASOPHILS % (AUTO) 0.6 % (0.0-2.0); EOSINOPHILS % (AUTO) 4.1 % (0.0-3.0); LYMPHOCYTES % (AUTO) 31.7 % (20.0-45.0); MEAN CORPUSCULAR HEMOGLOBIN 30.3 PG (27.0-31.0); MEAN CORPUSCULAR HGB CONC 33.4 G/DL (32.0-36.0); MEAN CORPUSCULAR VOLUME 91 FL (80-99); MEAN PLATELET VOLUME 7.8 FL (6.5-10.1); MONOCYTES % (AUTO) 7.3 % (1.0-10.0); NEUTROPHILS % (AUTO) 56.3 % (45.0-75.0); PLATELET COUNT 245 K/UL (150-450); RED BLOOD COUNT 4.85 M/UL (4.20-5.40); RED CELL DISTRIBUTION WIDTH 11.9 % (11.6-14.8); WHITE BLOOD COUNT 11.9 K/UL (4.8-10.8)
--- NOTE | 2016-11-10 01:14 | Emergency Room Report ---
History of Present Illness General Chief Complaint: Chest Pain Source: Patient Present Illness HPI Is a 60-year-old female with a history of ventricular tachycardia. She failed ablation therapy and is supposed to scheduled for another one. She presents with chief complaint of right upper quadrant pain. Onset was about 15 minutes ago. Pain radiating to the right shoulder blade. No fever or chills. Has nausea but no vomiting. She thought maybe her chest. Denies any diarrhea. Pain is 10 out of 10. Has not anything for this. Allergies: Coded Allergies: No Known Allergies (Unverified , 03/18/16) Patient History Past Medical History: see triage record, old chart reviewed, HTN, arrhyth Past Surgical History: other Pertinent Family History: none Social History: Denies: smoking Last Menstrual Period: N/A Now: No Immunizations: other Reviewed Nursing Documentation: PMH: Agreed, PSxH: Agreed Nursing Documentation-PMH Hx Cardiac Problems: Yes - A fib, CHF Hx Hypertension: Yes Hx COPD: Yes Hx Cancer: No Hx Gastrointestinal Problems: No Hx Neurological Problems: No Review of Systems Eye: Denies: blurred vision, eye pain ENT: Denies: ear pain, nose congestion, throat swelling Respiratory: Denies: cough, shortness of breath Cardiovascular: Denies: chest pain, palpitations Gastrointestinal: Reports: abdominal pain, nausea, Denies: diarrhea, vomiting Musculoskeletal: Denies: back pain, joint pain Skin: Denies: rash Neurological: Denies: headache, numbness Endocrine: Denies: increased thirst, increased urine Hematologic/Lymphatic: Denies: easy bruising All Other Systems: negative except mentioned in HPI Physical Exam Vital Signs Date Time Temp Pulse Resp B/P Pulse Ox O2 Delivery O2 Flow Rate FiO2 11/10/16 00:31 77 27 146/116 97 Room Air vitals with hypertension Sp02 EP Interpretation: reviewed, normal General Appearance: well appearing, no apparent distress, alert, obese Head: normocephalic, atraumatic Eyes: bilateral eye EOMI, bilateral eye PERRL ENT: hearing grossly normal, normal pharynx Neck: full range of motion, supple, no meningismus Respiratory: chest non-tender, lungs clear, normal breath sounds Cardiovascular #1: regular rate, rhythm, no murmur Gastrointestinal: normal bowel sounds, no mass, no organomegaly, no bruit, non- distended, tenderness - Right upper quadrant Musculoskeletal: back normal, gait/station normal, normal range of motion Neurologic: alert, oriented x3 Psychiatric: mood/affect normal Skin: warm/dry Medical Decision Making Diagnostic Impression: Primary Impression: Atypical chest pain Additional Impressions: Biliary colic Cholelithiasis Qualified Codes: K80.20 - Calculus of gallbladder without cholecystitis without obstruction ER Course Patient presents with right-sided chest pain going to her shoulder blade. This is consistent with biliary colic. She has previous angiogram the does not show blockage. She is better now. Her son said this occur after she ate a very gre[place] from [place]. She is asymptomatic now. No evidence of ACS, PE , dissection. No evidence of obstruction or cholecystitis. Did a bedside ultrasound which showed sludge and stone. Negative Melo sign. Unable to see comon bile duct. Lab Results Impression labs unremarkable EKG Diagnostic Results Rate: normal Rhythm: NSR ST Segments: no acute changes Rhythm Strip Diag. Results EP Interpretation: yes Rate: 75 Rhythm: NSR, no PVC's, no ectopy Last Vital Signs Date Time Temp Pulse Resp B/P Pulse Ox O2 Delivery O2 Flow Rate FiO2 11/10/16 00:53 72 20 Room Air 11/10/16 00:31 146/116 97 Status: improved Disposition: HOME, SELF-CARE Condition: Stable Scripts Hydrocodone/Acetaminophen 5-325* (HYDROCODONE/ACETAMINOPHEN 5-325*) 1 Each Tablet 1 TAB ORAL Q6H Y for For Pain, #30 TAB 0 Refills Prov: DORA MAJOR M.D. 11/10/16 Referrals: [facility],REFERRING (PCP) Additional Instructions: Followup with your DrBrenna in 3-5 days. Return if symptom worsen. DORA MAJOR M.D. Nov 10, 2016 01:14
[2016-11-10 01:20] LABS: ALANINE AMINOTRANSFERASE 19 U/L (3-33); ALBUMIN/GLOBULIN RATIO 1.2 (1.0-2.7); ANION GAP 13 (5-15); ASPARTATE AMINO TRANSFERASE 17 U/L (5-40); CALCIUM 9.1 mg/dL (8.6-10.2); CARBON DIOXIDE 27 mEQ/L (20-30); CHLORIDE 101 mEQ/L (98-107); CREATININE 0.9 mg/dL (0.5-0.9); GLOMERULAR FILTRATION RATE > 60 mL/min (>60); HEMOLYSIS 4; LIPASE 14 U/L (< 60); POTASSIUM 4.6 mEQ/L (3.4-4.9); SODIUM 141 mEQ/L (135-145); TOTAL PROTEIN 7.3 g/dL (6.6-8.7)
[2016-11-10] MEDS ORDERED: HYDROCODON-ACE1 EA15 ORAL (02:03)
[2016-11-10 02:17] VITALS: BP 120/53
[2016-11-10 02:18] VITALS: BP 120/53
--- NOTE | 2016-11-10 13:08 | Cardiology Report ---
APPROVED REPORT EKG Measurement Heart [id number] Normal sinus rhythm Normal ECG
== END 2016-11-10 02:21 | disposition home or self-care (01) ==
LOC: EMR 00:36
DX: R07.89 Other chest pain (principal); K80.20 Calculus of gallbladder without cholecystitis without obstruction; I48.91 Unspecified atrial fibrillation; I50.9 Heart failure, unspecified; I10 Essential (primary) hypertension; J44.9 Chronic obstructive pulmonary disease, unspecified
CPT/HCPCS: 36415; 80053; 83690; 85025; 93005; 96374; 96375; 99284; J1170; J2405